=== PATIENT | male | born 1995 | race Caucasian/White ===

== ENCOUNTER 2017-05-11 00:20 | Emergency (ER) | payer OTHER ==
[2017-05-11] MEDS ORDERED: ONDANSETRON 4 MG/2 ML VIAL IVP ONE (00:26)
[2017-05-11] MEDS ORDERED: NS 1,000 ML IV ONE (00:26)
--- NOTE | 2017-05-11 00:29 | EDPHY ---
H & P HPI/ROS: HPI CHIEF COMPLAINT: Alcohol Intoxication HISTORY OF PRESENT ILLNESS: This patient 21-year-old male who presents emergency room by EMS for alcohol intoxication. Unable to ambulate. Nausea vomiting. He states he has been drinking 3-4 shots of liquor and had a 4 loco. He feels too intoxicated. He denies drug use. Or ingestion of anything else. No trauma. Past Medical History: No medical history Past Surgical History: No surgical history Social History: Admits to large amount of alcohol this evening Family History: Noncontributory ROS REVIEW OF SYSTEMS: A comprehensive 10 point review of systems is otherwise negative aside from elements mentioned in the history of present illness. Exam Constitutional Intoxicated, triage nursing summary reviewed, vital signs reviewed, Sleepy, smells of alcohol Eyes normal conjunctivae and sclera, horizontal beating nystagmus consistent acute alcohol intoxication, otherwise pupils equal and react to light HENT normal inspection, atraumatic, moist mucus membranes, no epistaxis, neck supple/ no meningismus, no raccoon eyes. Respiratory clear to auscultation bilaterally, normal breath sounds, no respiratory distress, no wheezing. Cardiovascular rate normal, regular rhythm, no murmur, no edema, distal pulses normal. Gastrointestinal soft, non-tender, no rebound, no guarding, normal bowel sounds, no distension, no pulsatile mass. Genitourinary no CVA tenderness. Musculoskeletal no midline vertebral tenderness, full range of motion, no calf swelling, no tenderness of extremities, no meningismus, good pulses, neurovascularly intact. Skin pink, warm, & dry, no rash, skin atraumatic. Neurologic sleepy, intoxicated with alcohol,, alert and oriented x 3, AAOx3, moves all 4 extremities equally, motor intact, sensory intact, CN II-XII intact , , normal vision, normal speech. Psychiatric normal mood/affect. Heme/Lymph/Immune no lymphadenopathy. Differential Diagnosis: Includes but is not limited to in a particular order acute alcohol intoxication, alcohol abuse, dehydration, electrolyte abnormality , nausea vomiting from acute alcohol intoxication Medical Decision Making: Patient had an IV established, IV fluid bolus 1 L normal saline, IV Zofran for nausea. Supportive care. Re-evaluation: This patient ambulated well throughout the emergency room at 5:00 a.m.. Resting comfortably. No acute distress. Not vomiting. Clinically sober. Safe for discharge. Source: Patient, EMS Constitutional: Initial Vital Signs Temperature (C) 36.6 C 05/11/17 00:29 Heart Rate 81 05/11/17 00:29 Respiratory Rate 16 05/11/17 00:29 Blood Pressure 119/69 05/11/17 00:29 O2 Sat (%) 96 05/11/17 00:29 O2 Delivery Mode Room Air O2 (L/minute) 3 Allergies/Adverse Reactions: No Known Allergies Allergy (Unverified 05/11/17 00:28) Home Medications: Medication Instructions Recorded NK [No Known Home Meds] 05/11/17 Medical Decision Making - Data Points Medications Given: Discontinued Medications Sodium Chloride (Ns) 1,000 mls @ 0 mls/hr IV ONCE ONE PRN Reason: Wide Open Stop: 05/11/17 00:27 Last Admin: 05/11/17 02:18 Dose: 1,000 mls Ondansetron HCl (Zofran) 4 mg IVP EDNOW ONE Stop: 05/11/17 00:27 Last Admin: 05/11/17 02:18 Dose: 4 mg Departure - Departure Disposition: Home, Routine, Self-Care Clinical Impression: Alcoholic intoxication Qualifiers: Complication of substance-induced condition: uncomplicated Qualified Code(s): F10.920 - Alcohol use, unspecified with intoxication, uncomplicated Condition: Good Instructions: Alcohol Intoxication (ED) Referrals: Patient,NotPresent [Unknown] - As per Instructions
[2017-05-11 00:30] VITALS: RESP 16; TEMP 97.9
[2017-05-11 06:20] VITALS: BP 102/52; PULSE 52; O2SAT 96
== END 2017-05-11 06:48 | disposition home or self-care (01) ==
DX: F10.920 Alcohol use, unspecified with intoxication, uncomplicated (principal); R11.2 Nausea with vomiting, unspecified
CPT/HCPCS: 96374; J2405